=== PATIENT | female | born 1950 | race Caucasian/White ===

== ENCOUNTER 2017-09-19 07:43 | Day surgery (SDC) | payer MEDICARE, OTHER ==
[2017-09-19] MEDS: NS 1,000 ML IV (08:00)
[2017-09-19] MEDS ORDERED: PROPOFOL 200 MG/20 ML VIAL As Ordered ×2 (09:17→09:25)
[2017-09-19] MEDS ORDERED: LIDOCAINE 2% INJ 100 MG/5 ML SDV (FOR ANES.) As Ordered (09:17)
== END 2017-09-19 10:01 | disposition home or self-care (01) ==
LOC: M OPP 07:43
DX: Z12.11 Encounter for screening for malignant neoplasm of colon (principal); Z86.010 Personal history of colon polyps; K57.30 Diverticulosis of large intestine without perforation or abscess without bleeding; I10 Essential (primary) hypertension; E78.5 Hyperlipidemia, unspecified; E11.9 Type 2 diabetes mellitus without complications; R12 Heartburn; K21.9 Gastro-esophageal reflux disease without esophagitis; D64.9 Anemia, unspecified; M19.90 Unspecified osteoarthritis, unspecified site; F41.9 Anxiety disorder, unspecified; F32.9 Major depressive disorder, single episode, unspecified; G62.9 Polyneuropathy, unspecified; Z78.0 Asymptomatic menopausal state; R06.83 Snoring; Z87.891 Personal history of nicotine dependence; Z88.3 Allergy status to other anti-infective agents; Z88.8 Allergy status to other drugs, medicaments and biological substances; Z88.0 Allergy status to penicillin; Z88.2 Allergy status to sulfonamides; Z79.82 Long term (current) use of aspirin; Z79.899 Other long term (current) drug therapy; Z80.1 Family history of malignant neoplasm of trachea, bronchus and lung; Z80.51 Family history of malignant neoplasm of kidney
CPT/HCPCS: G0105

== ENCOUNTER 2023-04-30 06:25 | Day surgery (SDC) | payer MEDICARE ==
[~2023-04-30] VITALS: Ht 160 cm; Wt 63.0 kg
[~2023-04-30 06:25] MED LIST: ASPI81TA2 PO; ASPI81TA26 PO; ATOR1TAB21 PO; B-12100021 PO; BUSP5TA PO; CALC600T57 PO; CALCTAB29 PO; CRANBERRY FRUIT PO; CYCLOPENTOLATE 1% OPHTH SOLN 2ML BTL OD SCH; IRON27TA PO; LOSA100T8 PO; LOSARTAN/HCTZ PO; METF-877 PO; METF1000 PO; METF10004 PO; MULT-90 PO; MULT1TAB10 PO; OFLOXACIN 0.3 % (OCUFLOX) OPTH SOL 5ML OD SCH; OMEP1CAP73 PO; PHENYLEPHRINE 2.5% OPHTH SOL 2ML OD SCH; PREDPOW10 PO; PRIL40CA PO; PROPARACAINE 0.5% OPHTH SOL 15ML OD ONE; SIMV20TA2 PO; TROPICAMIDE 1% OPHTH SOLN 15ML OD SCH; VITA250011 PO; ZOLO50TA PO
[2023-04-30] MEDS ORDERED: LIDOCAINE 1% SDV 5ML VIAL As Ordered ONE (06:39)
[2023-04-30] MEDS ORDERED: TOBRADEX OPHTH OINT 3.5 GM As Ordered ONE (06:40)
[2023-04-30] MEDS ORDERED: BSS IRR 500ML/OMIDRIA 4ML IRR BAG (OR ONLY) As Ordered ONE (06:40)
[2023-04-30] MEDS ORDERED: MIDAZOLAM INJ 2MG/2ML VIAL As Ordered ONE (07:10)
[2023-04-30] MEDS ORDERED: fentaNYL 100 MCG/2 ML INJECTION As Ordered ONE (07:10)
[2023-04-30 09:00] VITALS: BP 123/65; TEMP 97.7; O2SAT 96
== END 2023-04-30 09:27 | disposition home or self-care (01) ==
LOC: M SDC 06:25
PROVIDERS: ATTEND Ophthalmology
DX: H25.11 Age-related nuclear cataract, right eye (principal); I10 Essential (primary) hypertension; E78.5 Hyperlipidemia, unspecified; E11.9 Type 2 diabetes mellitus without complications; K21.9 Gastro-esophageal reflux disease without esophagitis; F41.9 Anxiety disorder, unspecified; F32.A Depression, unspecified; Z79.82 Long term (current) use of aspirin; Z79.899 Other long term (current) drug therapy; Z79.84 Long term (current) use of oral hypoglycemic drugs; Z88.8 Allergy status to other drugs, medicaments and biological substances; Z88.2 Allergy status to sulfonamides; Z88.0 Allergy status to penicillin
CPT/HCPCS: 66984; J1097; J2250; J3010; V2632